=== PATIENT | female | born 1960 | race Caucasian/White ===

== ENCOUNTER 2021-02-05 09:18 | Emergency (ER) | payer OTHER ==
[~2021-02-05] VITALS: Ht 154.9 cm; Wt 94.1 kg
--- NOTE | 2021-02-05 09:55 | NUR ---
pt ambulated with steady gait to restroom. urine sample provided. taken to lab. pt reports light-headedness with ambulation. 02 92% after ambulating, hr 104.
--- NOTE | 2021-02-05 11:33 | NUR ---
pt will be in car after lab draw, call [phone]
[2021-02-05 12:02] LABS: BASOPHILS % (AUTO) 0.3 % (0-1); EOSINOPHILS % (AUTO) 0.1 % (0-6); HEMOGLOBIN 14.2 g/dl (12.0-16.0); LYMPHOCYTES % (AUTO) 12.6 % (21-51); MEAN CORPUSCULAR HEMOGLOBIN 28.7 PG (27.0-31.0); MEAN CORPUSCULAR VOLUME 87.1 FL (78-98); MONOCYTES # (AUTO) 0.8 X10'3 (0-0.9); MONOCYTES % (AUTO) 10.2 % (2-12); NEUTROPHILS % (AUTO) 76.8 % (42-75); PLATELET COUNT 224 X10'3 (140-440); RED BLOOD COUNT 4.94 X10'6 (4.20-5.60); RED CELL DISTRIBUTION WIDTH 15.1 % (11.5-14.5); WHITE BLOOD COUNT 7.9 X10'3 (4.5-11.0)
[2021-02-05 12:08] LABS: CLARITY,URINE CLOUDY (Clear); COLOR,URINE YELLOW (Yellow); GLUCOSE, URINE NEGATIVE (Neg); KETONES,URINE TRACE mg/dl (Neg); LEUKOCYTE ESTERASE ,URINE MODERATE (Neg); NITRITES, URINE NEGATIVE (Neg); OCCULT BLOOD,URINE LARGE (Neg); PH,URINE 5.5 (4.8-8.0); PROTEIN,URINE 100 mg/dl (Neg); UROBILINOGEN,URINE 0.2 E.U/dL (0.2-1.0)
[2021-02-05 12:14] LABS: UA COLLECTION TYPE NON-SPECIFIED
[2021-02-05 12:15] LABS: HYALINE CASTS 0-3 /LPF (NEGATIVE); MUCUS STRANDS MANY /LPF (Neg); SQUAMOUS EPITHELIAL CELL,UR MANY /LPF (FEW)
[2021-02-05 12:16] LABS: RBC,URINE TNTC /HPF (0-2)
[2021-02-05 12:20] LABS: AMORPHOUS URATES 2+; BACTERIA,URINE 1+ /HPF (Neg); RENAL CELLS, URINE FEW /HPF; TRANSITIONAL EPI CELLS,URINE MANY /HPF
[2021-02-05 12:22] LABS: ALANINE AMINOTRANSFERASE 149 U/L (12-78); ALBUMIN 3.6 G/DL (3.4-5.0); ALBUMIN/GLOBULIN RATIO 0.8 (1.1-1.5); ALKALINE PHOSPHATASE 97 IU/L (46-116); ANION GAP 11 (8-16); ASPARTATE AMINO TRANSFERASE 104 U/L (10-37); BILIRUBIN,TOTAL 0.3 MG/DL (0.1-1.0); BLOOD UREA NITROGEN 18 MG/DL (7-18); BUN/CREATININE RATIO 12.3 (6.6-38.0); CALCIUM 8.8 MG/DL (8.5-10.1); CHLORIDE 97 MMOL/L (99-107); CREATININE 1.46 MG/DL (0.40-0.90); GLUCOSE 191 MG/DL (70-104); POTASSIUM 3.9 MMOL/L (3.5-5.1); SODIUM 135 MMOL/L (135-145); TOTAL CARBON DIOXIDE 26.9 MMOL/L (24-32); TOTAL PROTEIN 8.2 G/DL (6.4-8.2); eGFR 37 ML/MIN
[2021-02-05] MEDS ORDERED: ondansetron 4mg rapidly disintigrating tab PO ONE (12:30)
[2021-02-05] MEDS ORDERED: HYDROcodone/acetaminophen 10/325mg tab PO ONE (12:30)
[2021-02-05] MEDS ORDERED: CIPR-202 PO (13:16)
[2021-02-05] MEDS ORDERED: HYDR-3965 PO (13:16)
[2021-02-05] MEDS ORDERED: ONDA4TAB6 PO (13:16)
[2021-02-05 13:35] VITALS: BP 116/75
[2021-02-08] MEDS ORDERED: ASPI-1397 PO (15:09)
[2021-02-08] MEDS ORDERED: HYDR-3964 PO (15:09)
[2021-02-08] MEDS ORDERED: ATEN50TA2 PO (15:09)
[2021-02-08] MEDS ORDERED: METF-1203 PO (15:09)
[2021-02-08] MEDS ORDERED: FAMO40TA8 PO (15:09)
[2021-02-08] MEDS ORDERED: SULF1TAB45 PO (15:09)
[2021-02-08] MEDS ORDERED: ONDA-103 PO (15:09)
== END 2021-02-05 13:36 | disposition home or self-care (01) ==
LOC: ER 09:19
DX: N39.0 Urinary tract infection, site not specified (principal); R10.84 Generalized abdominal pain; R30.9 Painful micturition, unspecified; Z79.2 Long term (current) use of antibiotics; Z79.899 Other long term (current) drug therapy
CPT/HCPCS: 36415; 80053; 81001; 85025; 99283